=== PATIENT | female | born 1965 | race Caucasian/White ===

== ENCOUNTER 2018-06-15 16:25 | Emergency (ER) | payer MEDICAID ==
[~2018-06-15] VITALS: Ht 165.1 cm; Wt 109.1 kg
[2018-06-15 17:53] VITALS: BP 164/88
== END 2018-06-15 17:51 | disposition home or self-care (01) ==
LOC: ED 16:25
DX: M25.561 Pain in right knee (principal)

== ENCOUNTER → 2018-06-17 | Outpatient (CLI) | payer MEDICAID ==
[2018-06-15 17:53] VITALS: BP 164/88
== END ==
LOC: RAD 09:57
DX: M17.11 Unilateral primary osteoarthritis, right knee (principal)